=== PATIENT | female | born 1995 | race Caucasian/White ===

== ENCOUNTER 2020-01-15 09:30 | Outpatient (RCR) | payer OTHER, MEDICAID, SELFPAY ==
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
--- NOTE | 2019-12-26 15:29 | ST.OPTN ---
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 Treatment Note Start: 12/18/19 12:52 Freq: Status: Active Protocol: Document 12/25/19 13:09 JENISE (Rec: 12/25/19 13:10 JENISE [email or web address]) Speech Pathology Treatment Note Session Time Visit Start Time 10:30 Visit Stop Time 10:45 Total Visit Minutes 15 Visit Information Visit Number 1 Plan of Care Dates 12/18/19 - 03/12/20 Insurance Information Christina (6 session limit per auth) Setting Treatment Setting Outpatient Care Visit Type Note Type Treatment Note Next Note Type Next Note Type Treatment Note Subjective Identification Type Name,ID Card Observations/Patient Presentation Pt arrived on time and reported improved swallow with NTL. She's finding it easier to swallow small bites of foods, such as breads, especially when minizing distractions while eating. Chief Complaint(s) Swallowing,Voice Rehab Expectation/Goals: Patient Goals Improved breath support for speech; be heard without straining; reduce pain Objective Short Term Goals Dysphagia: 1. Pt will participate in MBSS for further assessment of swallow function and safety and to guide POC. 2. Pt will complete exercises independently to reduce pain with swallow and risk of aspiration. 3. Pt will use compensatory strategies to improve safety and comfort with oral intake. 4. Pt will tolerate mechanical soft textures and NTLs without overt s/sx of aspiration or pain with swallow. Sap Gatherer Goals Dysphagia: 1. Pt will report minimal or no pain with oral intake. 2. Pt will demonstrate independent compliance with HEP to promote long-term improvement in swallow function and safety. 3. Pt will tolerate least restrictive diet to meet her nutrition and hydration needs. Treatment Activities Educated and trained pt in swallow exercises. Pt verbalized understanding and returned demonstration. Pt completed EAT-10 assessment with score of 17, where 3 or greater indicates dysphagia. Assessment Patient Response to Treatment Good Rehab Potential Good Impairments Identified Dysphagia,Dysphonia,Vocal Quality Progress Towards Goals Slow Progress Assessment of Overall Progress Improving Assessment of Improvement The pt reports improved swallow with NTLs and increased attention to swallow by decreasing distractions during oral intake. EAT-10 assessment tool indicates moderate swallow impairments. Reviewed with Patient Goals,Progress Being Made,Home Exercise Program Patient/Caregiver Understanding Excellent Plan Therapeutic Contents Client Education,Home Exercise Program,Swallowing/Feeding, Voice Training Provided Patient/Caregiver Instruction Home Exercise Program,Plan of Care,Questions/Concerns Therapy Recommendations Continue with Current Program
--- NOTE | 2020-01-08 12:52 | ST.OPTN ---
Visit Care Team Role Provider Type Piero Darrian Primary Care Provider Non-Staff Address: [address] , [place], [address] Henrique Dinh MD Attending Provider Physician Referring Provider Address: [address] [place] [address], [place], [address] LIGHTER CAPTAIN Treatment Note LIGHTER CAPTAIN Treatment Note Start: 12/18/19 12:52 Freq: Status: Active Protocol: Document 01/08/20 12:30 JENISE (Rec: 01/08/20 12:51 JENISE [id number]) Speech Pathology Treatment Note Session Time Visit Start Time 10:35 Visit Stop Time 11:20 Total Visit Minutes 45 Visit Information Visit Number 2 Plan of Care Dates 12/18/19 - 03/12/20 Insurance Information Christina (6 session limit per auth) Setting Treatment Setting Outpatient Care Visit Type Note Type Administrative Note Next Note Type Next Note Type Treatment Note General Information General Information Evaluation by ENT laryngoscopy revealed no mass or gross abnormality. VFs are mobile but intermittent spasming of true right VF was observed. ENT suspects possible influence of vocal overuse and acid reflux. The pt reported allergy testing a few years ago that revealed allergic reactions to most animals except reptiles, birds and cats, as well as dander, ammonia, and dust. 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 She is exposed to dust but benefits from wearing a mask and also manages allergies medicinally (3x/day). Subjective Identification Type Name,ID Card Observations/Patient Presentation The pt arrived on time. Apologized for missing last appt. Stated her mother fell and she needed to bring her to [address] for medical appt. Reminded pt of the clinic no- show policy, which the pt acknowledged. Stated she would be sure to call if she needed to miss any future appts. The pt reported improvements in swallow ability, able to consume thin liquids if in a quiet environment and not distracted, and was also able to consume a mix cheeseburger on toasted bun with only minimal pain from hard texture of mix but no other difficulties or s/sx of aspiration. Reports this was the first time she was able to eat toasted bread, and she expressed being quite pleased. She has been compliant with both swallow and voice exercises, per her report. The pt stated she did not receive LIGHTER CAPTAIN's vm RE referral for videostroboscopy but did think she had received a call from [facility], which she would follow up on. Chief Complaint(s) Swallowing,Voice Rehab Expectation/Goals: Patient Goals Improved breath support for speech; be heard without straining; reduce pain Objective Short Term Goals Dysphagia: 1. Pt will participate in MBSS for further assessment of swallow function and safety and to guide POC. 2. Pt will complete exercises independently to reduce pain with swallow and risk of aspiration. 3. Pt will use compensatory strategies to improve safety and comfort with oral intake. 4. Pt will tolerate mechanical soft textures and NTLs without overt s/sx of aspiration or pain with swallow. Credit And Collection Manager Goals Dysphagia: 1. Pt will report minimal or no pain with oral intake. 2. Pt will demonstrate independent compliance with HEP to promote long-term improvement in swallow function and safety. 3. Pt will tolerate least restrictive diet to meet her nutrition and hydration needs. Treatment Activities Educated pt RE videostroboscopy procedure, purpose, and potential impact on guiding POC. Also educated on VF/larygeal spasms and related deep breathing exercises to prevent/manage, as well as stress as a potential trigger. 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 She stated that her inhaler was helpful during such episodes but that, because she does not like using the inhaler, she typically successfully manages symptoms with simple rest. She also reported a habit of holding her breath when she is working hard/exercising and when she feels stressed. She stated this has been a lifelong habit, occurring temporarily as a small child and then resuming again around age 11 when her parents . It has been a habit ever since. Education was provided RE similarities and differences between asthma and PVFM, as well as RE normal/ abnormal VF movement and potential impact of stress, and specifically an habitual response to hold one's breath, on laryngeal tension and vocal quality. Trained pt in techniques to control breathing during exercise to reduce SOB and asthma/PVFM symptoms. The pt returned demonstration of breathing technique and verbalized understanding. 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 However, she is responsive to the inhaler when she chooses to use it, which may indicate a true asthma presence. This further reinforces the need for videostroboscopy, which continues to be recommended. During today's tx, the pt was highly receptive to all education and training provided today, verbalizing and demonstrating understanding and ability to perform breathing techniques as instructed. She has demonstrated excellent awareness of vocal function and fatigue, as well as behaviors that negatively impact swallow safety, and she has been independently proactive in modifying such behaviors to protect both. As a result of these modifications and continued compliance with HEP, she is experiencing good improvements in both vocal quality and safe swallow ability. Reviewed with Patient Goals,Progress Being Made,Home Exercise Program Patient/Caregiver Understanding Excellent Plan Amount of Therapy Recommended 2-3 Months Frequency of Treatment Once a Week Length of Session 45 Minutes Therapeutic Contents Client Education,Home Exercise Program,Swallowing/Feeding, Voice Training Provided Patient/Caregiver Instruction Home Exercise Program,Plan of Care,Questions/Concerns Therapy Recommendations Continue with Current Program Suggested Referral ENT Other Referrals Videostroboscopy, hearing test
--- NOTE | 2020-01-15 12:12 | ST.OPTN ---
Visit Care Team Role Provider Type Piero Darrian Primary Care Provider Non-Staff Address: [address] , [place], [address] Henrique Dinh MD Attending Provider Physician Referring Provider Address: [address] [place] [address], [place], [address] SENIOR CLINICAL RESEARCH ASSOCIATE Treatment Note SENIOR CLINICAL RESEARCH ASSOCIATE Treatment Note Start: 12/18/19 12:52 Freq: Status: Active Protocol: Document 01/15/20 11:49 LL (Rec: 01/15/20 12:11 LL [id number]) Speech Pathology Treatment Note Session Time Visit Start Time 09:35 Visit Stop Time 10:20 Total Visit Minutes 45 Visit Information Visit Number 3 Plan of Care Dates 12/18/19 - 03/12/20 Insurance Information Christina (6 session limit per auth) Setting Treatment Setting Outpatient Care Visit Type Note Type Treatment Note Subjective Identification Type Name Identification Reconciled With Intake Sheet Observations/Patient Presentation Ilana arrived several minutes late. Chief Complaint(s) Swallowing,Voice Rehab Expectation/Goals: Patient Goals Improved breath support for speech; be heard without straining; reduce pain Objective Short Term Goals Dysphagia: 1. Pt will participate in MBSS for further assessment of swallow function and safety and to guide POC. 2. Pt will complete exercises independently to reduce pain with swallow and risk of aspiration. 3. Pt will use compensatory strategies to improve safety and comfort with oral intake. 4. Pt will tolerate mechanical soft textures and NTLs without overt s/sx of aspiration or pain with swallow. Senior Care Goals Dysphagia: 1. Pt will report minimal or no pain with oral intake. 2. Pt will demonstrate independent compliance with HEP to promote long-term improvement in swallow function and safety. 3. Pt will tolerate least restrictive diet to meet her nutrition and hydration needs. Treatment Activities Ilana reported improved swallow function with thin liquids, NTLs, and mechanical soft textures (due to poor / painful dentition). Ilana independently recalled recommended compensatory swallow strategies, laryngeal strengthening exercises, breath support exercises, and compensatory speaking / voice strategies. Oral trials presented to assess toleration with thin liquids with use of compensatory swallow strategies (e.g., reduce distractions, focus on swallowing). Ilana consumed 5oz of thin water with one episode of coughing, which she reported was due to her not fully paying attention and attempting to take a breath while swallowing. SENIOR CLINICAL RESEARCH ASSOCIATE reviewed and explained importance of following recommended swallow strategies to improve safety and comfort with oral intake. Ilana consumed mechanical soft texture (e.g.,peaches) without any overt s/sx of aspiration observed. Ilana reported that she occasionally pockets food on the right side and attributed this pocketing to her back molar / molar pain. Ilana informed SENIOR CLINICAL RESEARCH ASSOCIATE that she will be receiving dental surgery (01-29-20) to repair her back molar and hopes that it will decrease oral pain when eating. It is recommended that Ilana receive a videostroboscopy, MBSS, and hearing test prior to discharge. Assessment Patient Response to Treatment Good Rehab Potential Good Impairments Identified Dysphagia,Dysphonia,Vocal Quality Progress Towards Goals Good Progress Assessment of Overall Progress Improving Assessment of Improvement Ilana was highly receptive to all education and training provided today, verbalizing and demonstrating understanding and ability to independently perform all tasks within HEP. As previously reported by primary SENIOR CLINICAL RESEARCH ASSOCIATE, patient continues to demonstrate excellent awareness of vocal function and fatigue, as well as behaviors that negatively impact swallow safety, and she has been independently proactive in modifying such behaviors to protect both. As a result of these modifications and continued compliance with HEP, she is experiencing good improvements in both vocal quality and safe swallow ability. Reviewed with Patient Goals,Progress Being Made,Home Exercise Program Patient/Caregiver Understanding Excellent Plan Amount of Therapy Recommended 2-3 Months Frequency of Treatment Once a Week Length of Session 45 Minutes Therapeutic Contents Client Education,Home Exercise Program,Swallowing/Feeding, Voice Training Provided Patient/Caregiver Instruction Home Exercise Program,Plan of Care,Questions/Concerns Therapy Recommendations Continue with Current Program Suggested Referral ENT Other Referrals Videostroboscopy, hearing test
--- NOTE | 2020-02-25 14:09 | ST.OPDS ---
Visit Care Team Role Provider Type Piero Darrian Primary Care Provider Non-Staff Address: [address] , [place], [address] Henrique Dinh MD Attending Provider Physician Referring Provider Address: [address] [place] [address], [place], [address] LIME KILN OPERATOR Treatment Note LIME KILN OPERATOR Treatment Note Start: 12/18/19 12:52 Freq: Status: Active Protocol: Document 02/25/20 14:07 JENISE (Rec: 02/25/20 14:09 JENISE [id number]) Speech Pathology Treatment Note Visit Information Plan of Care Dates 12/18/19 - 03/12/20 Insurance Information Christina (6 session limit per auth) Setting Treatment Setting Outpatient Care Visit Type Note Type Discharge Summary General Information General Information Evaluation by ENT laryngoscopy revealed no mass or gross abnormality. VFs are mobile but intermittent spasming of true right VF was observed. ENT suspects possible influence of vocal overuse and acid reflux. The pt reported allergy testing a few years ago that revealed allergic reactions to most animals except reptiles, birds and cats, as well as dander, ammonia, and dust. 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 She is exposed to dust but benefits from wearing a mask and also manages allergies medicinally (3x/day). Subjective Observations/Patient Presentation Pt was last seen 01/15/20. LIME KILN OPERATOR spoke with pt by phone today. Pt reported all dysphagia and dysphonia symptoms have resolved. Pt will be discharged from skilled services. Chief Complaint(s) Swallowing,Voice Objective Short Term Goals Dysphagia: 1. Pt will participate in MBSS for further assessment of swallow function and safety and to guide POC. NO LONGER WARRANTED 2. Pt will complete exercises independently to reduce pain with swallow and risk of aspiration. GOAL MET 3. Pt will use compensatory strategies to improve safety and comfort with oral intake. GOAL MET 4. Pt will tolerate mechanical soft textures and NTLs without overt s/sx of aspiration or pain with swallow. GOAL MET Detention Goals Dysphagia: 1. Pt will report minimal or no pain with oral intake. GOAL MET 2. Pt will demonstrate independent compliance with HEP to promote long-term improvement in swallow function and safety. GOAL MET 3. Pt will tolerate least restrictive diet to meet her nutrition and hydration needs. GOAL MET Assessment Patient Response to Treatment Excellent Progress Towards Goals Excellent Progress,Goals Met, Appropriate for Discharge Assessment of Overall Progress Rehabilitated Plan Frequency of Treatment No Further Therapy
== END 2020-03-09 09:06 ==
LOC: SP 09:30
PROVIDERS: PCP Family Medicine Sports Medicine; Referring Provider Otolaryngology; Visit Provider Otolaryngology
DX: R49.0 Dysphonia (principal)
CPT/HCPCS: 92507; 92520; 92524; 92526; 92610

== ENCOUNTER 2020-07-01 19:13 | Emergency (ER) | payer OTHER, MEDICAID, SELFPAY ==
[2020-07-01 19:15] VITALS: BP 129/79; PULSE 82; RESP 24; TEMP 37.2; O2SAT 99; BMI 58.6
--- NOTE | 2020-07-01 19:25 | DI.RAD.S_ITS ---
PROCEDURE: XR KNEE RT 3V INDICATIONS: fall on right knee TECHNIQUE: 2 views of the knee were acquired. COMPARISON: None. FINDINGS: Bones: No fractures or dislocations. No suspicious bony lesions. Soft tissues: No significant joint effusion. No suspicious soft tissue calcifications. IMPRESSION: No acute osseous abnormality. Dictated by: Jakob Granger M.D. on 07/01/2020 at 20:34 Approved by: Jakob Granger M.D. on 07/01/2020 at 20:35
[2020-07-01] MEDS: ACETAMINOPHEN 325 MG TABLET 975 MG PO (20:27)
--- NOTE | 2020-07-01 20:36 | ED.FALL ---
HPI - Fall General Chief Complaint: Fall Stated Complaint: GLF Time Seen by Provider: 07/01/20 19:25 Source: EMS Mode of arrival: EMS Limitations: no limitations History of Present Illness HPI Narrative: Patient is a 25-year-old female with morbid obesity presenting after a ground level fall with right knee and is pain. She states she slipped on the ice and landed directly on her right knee. She has some numbness and tingling of her right lower leg. Her right hip hurts as well. No head injury or loss of consciousness. She is able to move her toes. She has a pulse in her right foot. She is allergic to opiates and received 25 mg of ketamine with EMS for pain control Related Data Allergies Allergy/AdvReac Type Severity Reaction Status Date / Time Opioids - Morphine Analogues Allergy Difficulty Verified 07/01/20 20:07 Breathing tramadol Allergy Difficulty Verified 07/01/20 20:07 Breathing ketamine AdvReac Verified 07/01/20 20:07 Review of Systems Review of Systems Narrative: GENERAL: Denies chills,fever HEENT: Denies throat pain RESPIRATORY: Denies dyspnea, cough, wheezing CARDIOVASCULAR: Denies chest pain, palpitations GASTROINTESTINAL: Denies nausea, vomiting MUSCULOSKELETAL: HPI SKIN: No rash, no laceration, no pruritus NEUROLOGIC: Denies weakness, dizziness, headache, numbness 8 point review of systems is negative except for those stated above and HPI Patient History Medical History Morbid obesity Social History Smoking Status: Never smoker Smoking Status: Never smoker alcohol intake frequency: a few times a week Alcohol type: beer Substance Use Type: marijuana Exam Initial Vital Signs Initial Vital Signs: Vital Signs Temperature 98.9 F 07/01/20 19:15 Pulse Rate 82 07/01/20 19:15 Respiratory Rate 24 07/01/20 19:15 Blood Pressure 129/79 07/01/20 19:15 Pulse Oximetry 99 07/01/20 19:15 GENERAL: Alert 25-year-old morbid obese female HEENT: Head atraumatic,EOMI, pupils reactive, face symmetric, moist mucous membranes CARDIOVASCULAR: Regular rate and rhythm without murmurs, rubs or gallops. RESPIRATORY: Breath sounds equal bilaterally, no wheezes rales or rhonchi. EXTREMITIES: Normal range of motion, no clubbing or edema. Neurovascularly intact Right lower extremity significant right knee pain no erythema abrasion or sign of trauma. Distal pedal pulse is strong and marked. She is able to move toes ankle is non injured. She is tender in her right hip area NEUROLOGICAL: Alert and oriented x4.Normal gait and speech. Cranial nerves II through XII grossly intact. SKIN: Warm, dry, no laceration, no petechiae, no rashes or lesions. Course Orders Ordered: ED Orders 07/01/20 19:25 XR knee RT 3V Stat 07/01/20 20:36 XR pelvis 1-2V Stat Discontinued Medications Acetaminophen (Acetaminophen 325 Mg Tablet) 975 mg PO NOW ONE Stop: 07/01/20 20:21 Last Admin: 07/01/20 20:27 Dose: 975 mg Documented by: MELIZA Vital Signs Vital signs: Vital Signs - 8 hr 07/01/20 21:46 07/01/20 21:57 07/01/20 22:13 Pulse Rate 89 109 H 88 Respiratory Rate 20 20 20 Blood Pressure 134/81 153/67 H Pulse Oximetry 100 99 99 07/01/20 22:26 Pulse Rate 63 Respiratory Rate 16 Blood Pressure 128/78 Pulse Oximetry 98 MDM - Fall Imaging Data Extremity x-ray #1: Radiologist's Impression: PROCEDURE: XR KNEE RT 3V INDICATIONS: fall on right knee TECHNIQUE: 2 views of the knee were acquired. COMPARISON: None. FINDINGS: Bones: No fractures or dislocations. No suspicious bony lesions. Soft tissues: No significant joint effusion. No suspicious soft tissue calcifications. IMPRESSION: No acute osseous abnormality. Dictated by: Jakob Granger M.D. on 07/01/2020 at 20:34 Extremity x-ray #2: Radiologist's Impression: PROCEDURE: XR PELVIS 1-2V INDICATIONS: right sided pain TECHNIQUE: 1 view(s) of the pelvis acquired. [facility]2020, 19:34. FINDINGS: Bones: No fractures or dislocations. No suspicious bony lesions. Soft tissues: Visualized bowel gas pattern is normal. No suspicious soft tissue calcifications. IMPRESSION: No acute osseous abnormality identified. Dictated by: Jakob Granger M.D. on 07/01/2020 at 21:29 Approved by: Jakob Granger M.D. on 07/01/2020 at 21:30 [facility] Narrative Medical decision making narrative: The patient is quite tender. She is able to use crutches easily. I have reviewed her x-ray along with radiology no fracture is identified. She is able to weight bear a little. Recommended repeat x-ray or further testing if still having pain. Discharge Plan Departure Patient Disposition: Home Clinical Impression: Strain of right knee Instructions: DI for Knee Sprain Activity Restrictions/Additional Instructions: *You have been diagnosed with right knee sprain *What to do: Use crutches as needed over the next few days. You may weight bear as tolerated. Elevate, ice 20-30 minutes at a time. May require repeat x-ray if still having pain in 7-10 days *Continue to take medications as directed Ibuprofen 800 mg every 8 hours with food if needed for pain *Follow up with your primary care provider in 2-3 days *Return to ER if you should have persistent pain numbness tingling or weakness or any new, worsening or concerning symptoms Referrals: Pieor Colmenares MD [Primary Care Provider] - Stand Alone Forms: Work Release Note
[2020-07-01 21:46] VITALS: BP 134/81; PULSE 89; RESP 20; O2SAT 100
[2020-07-01 21:57] VITALS: BP 153/67; PULSE 109; RESP 20; O2SAT 99
[2020-07-01 22:13] VITALS: PULSE 88; RESP 20; O2SAT 99
[2020-07-01 22:26] VITALS: BP 128/78; PULSE 63; RESP 16; O2SAT 98
== END 2020-07-01 23:00 | disposition home or self-care (01) ==
PROVIDERS: Emergency Provider Emergency Medicine; PCP Family Medicine Sports Medicine
DX: S83.91XA Sprain of unspecified site of right knee, initial encounter (principal); M25.551 Pain in right hip; R20.0 Anesthesia of skin; R20.2 Paresthesia of skin; W19.XXXA Unspecified fall, initial encounter; E66.01 Morbid (severe) obesity due to excess calories; Z68.43 Body mass index [BMI] 50.0-59.9, adult
CPT/HCPCS: 72170; 73562; 99283

== ENCOUNTER → 2020-08-19 09:58 | Outpatient (CLI) | payer OTHER, MEDICAID, SELFPAY ==
[2020-08-19] MEDS: COVID-19 VACC #1, MRNA(MOD) 100 MCG/0.5 ML VIAL IM (10:07)
== END ==
PROVIDERS: PCP Family Medicine Sports Medicine; Visit Provider Internal Medicine
DX: Z23 Encounter for immunization (principal)
CPT/HCPCS: 0011A; 91301

== ENCOUNTER → 2020-09-16 09:51 | Outpatient (CLI) | payer OTHER, MEDICAID, SELFPAY ==
[2020-09-16] MEDS: COVID-19 VACC #2, MRNA(MOD) 100 MCG/0.5 ML VIAL IM (10:01)
== END ==
PROVIDERS: PCP Family Medicine Sports Medicine; Visit Provider Internal Medicine
DX: Z23 Encounter for immunization (principal)
CPT/HCPCS: 0012A; 91301